=== PATIENT | male | born 1985 | race Asian ===

== ENCOUNTER 2020-12-04 21:02 | Emergency (ER) | payer OTHER ==
[~2020-12-04] VITALS: Ht 162.6 cm; Wt 50.8 kg
[2020-12-04 21:24] VITALS: Ht 162.6 cm; Wt 50.8 kg
[2020-12-05 00:39] VITALS: BP 116/56
== END 2020-12-05 00:39 | disposition home or self-care (01) ==
LOC: ED 21:02
DX: S22.42XA Multiple fractures of ribs, left side, initial encounter for closed fracture (principal); S42.022A Displaced fracture of shaft of left clavicle, initial encounter for closed fracture; V87.8XXA Person injured in other specified noncollision transport accidents involving motor vehicle (traffic), initial encounter; Y93.55 Activity, bike riding; Y92.413 State road as the place of occurrence of the external cause; Y99.8 Other external cause status
CPT/HCPCS: 94150; J1885